=== PATIENT | male | born 1960 | race Caucasian/White ===

== ENCOUNTER 2016-07-15 12:51 | Emergency (ER) | payer MEDICAID ==
[~2016-07-15] VITALS: Ht 180.3 cm; Wt 83.9 kg
[2016-07-15 15:04] LABS: BASOPHILS % (AUTO) 0.8 % (0.0-2.0); DIFF TOTAL % 100 %; EOSINOPHILS # (AUTO) 0.2 /CMM (0.0-0.7); EOSINOPHILS % (AUTO) 3.3 % (0.0-6.0); HEMATOCRIT 42 % (39-51); HEMOGLOBIN 14.1 g/dL (13.5-17.5); LYMPHOCYTES # (AUTO) 1.9 /CMM (0.8-4.8); LYMPHOCYTES % (AUTO) 35.1 % (20.0-44.0); MEAN CORPUSCULAR HEMOGLOBIN 32 PG (26.0-33.0); MEAN CORPUSCULAR HGB CONC 34 g/dl (31.0-36.0); MEAN CORPUSCULAR VOLUME 96 fL (80-96); MONOCYTES # (AUTO) 0.5 /CMM (0.1-1.30); MONOCYTES % (AUTO) 8.7 % (2.0-12.0); NEUTROPHILS # (AUTO) 2.9 /CMM (1.8-8.9); NEUTROPHILS % (AUTO) 52.1 % (43.0-81.0); PLATELET COUNT (AUTO) 239 /CMM (150-450); RED BLOOD CELL COUNT(AUTO) 4.38 MIL/uL (4.5-6.0); WHITE BLOOD COUNT (AUTO) 5.5 K/uL (4.3-11.0)
[2016-07-15 15:13] LABS: CALCIUM, SERUM 8.2 mg/dL (8.5-10.1); CREATININE 1.2 mg/dL (0.6-1.3); POTASSIUM 3.9 mmol/L (3.5-5.1)
[2016-07-15 15:18] LABS: INR 0.99 (0.87-1.13); PROTHROMBIN TIME 10.4 SECS (9.5-12.7)
[2016-07-15 16:28] VITALS: BP 141/87
== END 2016-07-15 16:29 | disposition home or self-care (01) ==
LOC: ER 12:53
DX: H35.81 Retinal edema (principal); F20.9 Schizophrenia, unspecified
CPT/HCPCS: 36415; 71010; 80048; 85025; 85730; 93971; 99285; A4606; Z7610

== ENCOUNTER 2016-10-11 15:42 | Inpatient (IN) | payer OTHER ==
[~2016-10-11] VITALS: Ht 185.4 cm; Wt 103.5 kg
--- NOTE | 2016-10-11 15:49 | NUR ---
[id number]: S/P GLF, ABRASIONS TO HANDS. ALTERED MENTAL STATUS. AWAITING MD ORDER. GINO BAHENA
--- NOTE | 2016-10-11 16:13 | NUR ---
RODNEY #20 IV ACCESS. BLOOD SAMPLE COLLECTED SENT TO LAB
--- NOTE | 2016-10-11 16:14 | NUR ---
PT TAKEN TO CT SCAN VIA SHAWNA
[2016-10-11 16:15] LABS: BASOPHILS # (AUTO) 0.1 /CMM (0.0-0.2); BASOPHILS % (AUTO) 0.6 % (0.0-2.0); EOSINOPHILS # (AUTO) 0.1 /CMM (0.0-0.7); EOSINOPHILS % (AUTO) 1.3 % (0.0-6.0); HEMATOCRIT 44 % (39-51); HEMOGLOBIN 14.1 g/dL (13.5-17.5); LYMPHOCYTES # (AUTO) 1.8 /CMM (0.8-4.8); LYMPHOCYTES % (AUTO) 19.1 % (20.0-44.0); MEAN CORPUSCULAR HEMOGLOBIN 30 PG (26.0-33.0); MEAN CORPUSCULAR HGB CONC 32 g/dl (31.0-36.0); MEAN CORPUSCULAR VOLUME 95 fL (80-96); MONOCYTES # (AUTO) 0.7 /CMM (0.1-1.30); MONOCYTES % (AUTO) 7.8 % (2.0-12.0); NEUTROPHILS # (AUTO) 6.8 /CMM (1.8-8.9); NEUTROPHILS % (AUTO) 71.2 % (43.0-81.0); PLATELET COUNT (AUTO) 203 /CMM (150-450); RDW COEFFICIENT OF VARIATION 11.6 (11.5-15.0); RED BLOOD CELL COUNT(AUTO) 4.63 MIL/uL (4.5-6.0); WHITE BLOOD COUNT (AUTO) 9.5 K/uL (4.3-11.0)
[2016-10-11 16:28] LABS: PROTHROMBIN TIME 10.4 SECS (9.5-12.7)
[2016-10-11] MEDS ORDERED: TDAP [DIPH/PERTUSSIS/TET] 0.5 ML VIAL IM ONE ×2 (16:30→16:37)
[2016-10-11 16:31] LABS: ALANINE AMINOTRANSFERASE 21 U/L (12-78); ALBUMIN 3.8 g/dL (3.4-5.0); ALCOHOL, BLOOD < 3 mg/dL (0-0); ALKALINE PHOSPHATASE 50 U/L (46-116); ASPARTATE AMINOTRANSFERASE 25 U/L (15-37); BILIRUBIN,DIRECT 0.1 mg/dL (0.0-0.2); BILIRUBIN,TOTAL 0.6 mg/dL (0.2-1.0); CALCIUM, SERUM 8.2 mg/dL (8.5-10.1); CARBON DIOXIDE 19 mmol/L (21-32); CHLORIDE 85 mmol/L (98-107); CREATININE 1.5 mg/dL (0.6-1.3); GLUCOSE 95 mg/dL (74-106); POTASSIUM 4.1 mmol/L (3.5-5.1); TOTAL PROTEIN, SERUM 7.2 g/dL (6.4-8.2); UREA NITROGEN, BLOOD 9 mg/dL (7-18)
[2016-10-11 16:33] LABS: TROPONIN I < 0.017 ng/mL (0.00-0.056)
[2016-10-11 16:35] LABS: SODIUM SERUM 120 mmol/L (136-145)
[2016-10-11 16:44] LABS: THYROID STIMULATING HORMONE 3.962 uIU/mL (0.358-3.74)
--- NOTE | 2016-10-11 17:06 | NUR ---
URINE SAMPLE COLLECTED SENT TO LAB
--- NOTE | 2016-10-11 17:11 | NUR ---
PAGED DR NANCIE JOHNSON
--- NOTE | 2016-10-11 17:30 | NUR ---
REPORT GIVEN TO KATJA NAVARRO . TELEMETRY NIA ADMITTING. SYNCOPE HYPONATREMIA. TRANSFER VIA ACLS PROTOCOL. AWAITING CAREGIVER FOR MORE INFO AND MEDICATIONS
--- NOTE | 2016-10-11 17:37 | NUR ---
TELE 111-1
[2016-10-11 17:53] LABS: APPEARANCE,URINE Clear (CLEAR); BILIRUBIN,URINE Negative (NEGATIVE); BLOOD, URINE Moderate Ery/uL (NEGATIVE); COLOR,URINE Yellow (YELLOW); KETONES,URINE Negative (NEGATIVE); LEUKOCYTE ESTERASE ,URINE Negative (NEGATIVE); NITRITE, URINE Negative (NEGATIVE); PROTEIN,URINE Negative (NEGATIVE); UGLUCOSE Negative (NEGATIVE); UROBILINOGEN,URINE 0.2 EU/dL (0.2)
--- NOTE | 2016-10-11 17:58 | NUR ---
RN INITIAL NOTES RECEIVED PT FROM ER VIA SHAWNA. NO RESPIRATORY DISTRESS NOTED. NO SOB NOTED. DENIES ANY PAIN. PLACED COMFORTABLY TO BED. ORIENTED TO ROOM AND I=USE OF CALL LIGHT. PT A/OX1-2 WITH PERIODS OF CONFUSION. BODY ASSESSMENT DONE AND PICTURE TAKEN AND PLACED IN THE CHART. IV LINE IN PLACE. DR. CANADA AWARE OF ADMISSION, AWAITING FOR ORDERS. AND CAREGIVER AT BEDSIDE NOTIFIED.
[2016-10-11 18:01] VITALS: BP 176/95
[2016-10-11] MEDS ORDERED: ACETAMINOPHEN ES 500 MG TABLET PO PRN (18:30)
[2016-10-11 18:31] LABS: BACTERIA,URINE Rare /HPF (None Seen); SQUAMOUS EPITHELIAL CELL,UR Few /HPF (None Seen); URINE AMORPHOUS URATE Few /HPF (None Seen); WBC,URINE 0-2 /HPF (0-3)
--- NOTE | 2016-10-11 19:20 | NUR ---
RN INITIAL NOTES RECEIVED PATIENT IN BED, AWAKE AND ALERT TO NAME. PATIENT IS OBSERVED TO BE CONFUSED, AGITATED, KEEPS GETTING OUT OF BED. PATIENT'S CAREGIVER AT BEDSIDE, ABLE TO KEEP PATIENT'S BEHAVIOR AT MINIMUM AT THIS TIME, PROVIDING REASSURANCE TO THE PATIENT. PER CAREGIVER, PATIENT HAS BECOME MORE AND MORE CONFUSED, DISORIENTED FOR THE PAST COUPLE DAYS. ATTEMPTED TO REORIENT PATIENT NEEDED. SAFETY AND COMFORT ENSURED AT ALL TIMES. BED ALARM IN PLACE. BED IN LOW AND LOCKED POSITION. CALL LIGHT IN REACH. WILL MONITOR CLOSELY.
[2016-10-11 20:00] VITALS: BP 143/100
[2016-10-11] MEDS ORDERED: OLANZAPINE 10 MG VIAL IM ONE (20:30)
--- NOTE | 2016-10-11 20:30 | NUR ---
RN NOTES SPOKE WITH DR. CANADA AND UPDATED MD OF THE PATIENT'S CURRENT BEHAVIOR AND CONDITION. CON'T HOME MEDS ORDERED, ABLE TO OBTAIN ORDER FOR X1 ZYPREXA FOR AGITATION. ORDER NOTED AND CARRIED OUT. COORDINATED WITH PHARMACIST ACCORDINGLY. ALSO OBTAINED ORDER FOR 1:1 SITTER AND/OR RESTRAINTS TO BE PLACED. WILL MONITOR PATIENT CLOSELY.
--- NOTE | 2016-10-11 21:37 | NUR ---
RN NOTES PATIENT STILL AWAKE AND AGITATED, TALKING TO SELF. ATTEMPTS TO GET OUT OF BED. CONSTANT REORIENTATION AND REASSURANCE PROVIDED NEEDED, WITH MINIMAL TO NO HELP. CLOSE MONITORING BY STAFF AT ALL TIMES. BED ALARM IN PLACE. WILL CONTINUE TO MONITOR.
[2016-10-11] MEDS ORDERED: OLANZAPINE 10 MG TABLET PO SCH (22:00)
[2016-10-11] MEDS: SIMVASTATIN 20 MG TABLET PO SCH (22:22)
[2016-10-11] MEDS: LORAZEPAM INJ 2 MG/ML VIAL IV PRN (22:22)
[2016-10-11] MEDS: TRAZODONE 50 MG TABLET PO SCH (22:23)
[2016-10-12] VITALS (7 sets, daily range): BP systolic 107–195; BP diastolic 72–126
--- NOTE | 2016-10-12 03:45 | NUR ---
RN NOTES PATIENT STILL AWAKE, UNABLE TO SLEEP. TALKING TO SELF. CONSTANTLY REORIENTED AND REASSURED NEEDED, MINIMAL HELP. ON CLOSE MONITORING. BED ALARM IN PLACE.
[2016-10-12] MEDS: LORAZEPAM INJ 2 MG/ML VIAL IV PRN ×2 (04:30→10:57)
--- NOTE | 2016-10-12 06:49 | NUR ---
RN CLOSING NOTES PATIENT UNABLE TO SLEEP OVERNIGHT. PATIENT IS CONFUSED, DISORIENTED. PROVIDED WITH CONSTANT REORIENTATION AND REDIRECTION. ASSISTED WITH ADLS NEEDED. B SOFT WRIST RESTRAINTS IN PLACE AT ALL TIMES, CIRCULATION AND SKIN INTEGRITY ENSURED AT ALL TIMES. PATIENT ON CLOSE MONITORING, SAFETY AND COMFORT ENSURED AT ALL TIMES. FALL PRECAUTIONS OBSERVED. NEEDS ANTICIPATED AND MET. BED IN LOW AND LOCKED POSITION. BED ALARM IN PLACE. WILL ENDORSE ACCORDINGLY FOR CONTINUITY OF CARE.
[2016-10-12 07:05] LABS: BASOPHILS % (AUTO) 0.3 % (0.0-2.0); EOSINOPHILS % (AUTO) 0.3 % (0.0-6.0); HEMATOCRIT 48 % (39-51); HEMOGLOBIN 16.9 g/dL (13.5-17.5); LYMPHOCYTES # (AUTO) 1.3 /CMM (0.8-4.8); LYMPHOCYTES % (AUTO) 10.6 % (20.0-44.0); MEAN CORPUSCULAR HEMOGLOBIN 33 PG (26.0-33.0); MEAN CORPUSCULAR HGB CONC 35 g/dl (31.0-36.0); MEAN CORPUSCULAR VOLUME 95 fL (80-96); MONOCYTES # (AUTO) 0.9 /CMM (0.1-1.30); MONOCYTES % (AUTO) 7.3 % (2.0-12.0); NEUTROPHILS % (AUTO) 81.5 % (43.0-81.0); PLATELET COUNT (AUTO) 188 /CMM (150-450); RDW COEFFICIENT OF VARIATION 12.2 (11.5-15.0); RED BLOOD CELL COUNT(AUTO) 5.09 MIL/uL (4.5-6.0); WHITE BLOOD COUNT (AUTO) 12.2 K/uL (4.3-11.0)
--- NOTE | 2016-10-12 07:15 | NUR ---
RN INITIAL NOTE PT RECEIVED IN BED, AWAKE, ALERT, CONFUSED. DENIES PAIN AT THIS TIME. RESPIRATIONS ARE EVEN AND UNLABORED. NO S/S OF RESPIRATORY DISTRESS OR SOB. SATING WELL ON ROOM AIR. SINUS TACHYCARDIA ON TELE MONITOR. SKIN IS WARM AND DRY TO TOUCH. IV SITE FLUSHED, PATENT. DRESSING C/D/I. SAFETY PRECAUTIONS IN PLACE. BED IN LOCKED, LOW POSITIONS WITH TWO SIDE RAILS UP. CALL LIGHT AND BELONGINGS WITHIN EASY REACH. SITTER AT BEDSIDE. WILL CONTINUE TO MONITOR.
[2016-10-12 07:41] LABS: ALBUMIN 4.7 g/dL (3.4-5.0); BILIRUBIN,TOTAL 0.9 mg/dL (0.2-1.0); CALCIUM, SERUM 9.3 mg/dL (8.5-10.1); CREATININE 1.1 mg/dL (0.6-1.3); POTASSIUM 3.8 mmol/L (3.5-5.1); TOTAL PROTEIN, SERUM 8.9 g/dL (6.4-8.2)
[2016-10-12] MEDS: ALLOPURINOL 100 MG TABLET PO SCH (08:34)
[2016-10-12] MEDS: DIVALPROEX SODIUM 500 MG TABLET.DR PO SCH ×2 (08:34→16:16)
[2016-10-12] MEDS: MELOXICAM 7.5 MG TABLET PO SCH (08:34)
[2016-10-12] MEDS: ESCITALOPRAM OXALATE (10 MG) 10 MG TABLET PO SCH (08:34)
[2016-10-12] MEDS: clonazePAM 0.5 MG TABLET PO PRN ×2 (08:34→15:57)
[2016-10-12] MEDS: PANTOPRAZOLE 40 MG TABLET.DR PO SCH (08:34)
[2016-10-12] MEDS: CARVEDILOL 6.25 MG TABLET PO SCH (08:36)
[2016-10-12] MEDS ORDERED: MISCELLANEOUS MED 1 EA EA PO ONE (09:00)
--- NOTE | 2016-10-12 18:48 | NUR ---
RN CLOSING NOTE ALL MD ORDERS CARRIED OUT. PATIENT KEPT CLEAN AND DRY. SAFETY PRECAUTIONS IN PLACE AT ALL TIMES. REPORT WILL BE GIVEN TO PM RN FOR AGNES.
[2016-10-12] MEDS: SIMVASTATIN 20 MG TABLET PO SCH (21:40)
[2016-10-12] MEDS: OLANZAPINE 10 MG TABLET PO SCH ×2 (21:40→22:42)
[2016-10-12] MEDS: TRAZODONE 50 MG TABLET PO SCH (21:40)
[2016-10-13] VITALS: BP 106/69
[2016-10-13] MEDS: LORAZEPAM INJ 2 MG/ML VIAL IV PRN (00:15)
[2016-10-13 04:00] VITALS: BP 114/75
--- NOTE | 2016-10-13 07:20 | NUR ---
RN INITIAL NOTES: Rec'd pt asleep on bed, not in any distress. Pt on room air, no SOB noted. On telemonitor, SR. Has soft bilateral wrist restraints on. Pt has R hand G20, SL, flushed, patent & intact w/ no signs of infection/ infiltration noted. Has 1:1 sitter MEDICAL SERVICES MANAGER at bedside. Needs attended. Provided calm environment. Call light placed w/in reach. Bed kept low & in locked position. Will continue to monitor.
--- NOTE | 2016-10-13 07:36 | NUR ---
MECHANIC/WELDER CLOSING NOTES NO SIGNIFICANT CHANGES OVERNIGHT. PATIENT IS CONFUSED. ON BILATERAL SOFT WRIST RESTRAINTS CHECKED FOR SKIN BREAKDOWN, CIRCULATION AND SKIN INTEGRITY Q2H AND PRN. ALL SAFETY MEASURES MET, COMFORT PROVIDED. ALL NEEDS MET, ALL MEDS GIVEN AND TOLERATED IT WELL. BED IN LOW AND LOCKED POSITION, ENDORSED TO AM NURSE FOR CONTINUATION OF CARE
[2016-10-13 08:00] VITALS: BP 130/88
[2016-10-13] MEDS: CARVEDILOL 6.25 MG TABLET PO SCH (08:59)
[2016-10-13] MEDS: ALLOPURINOL 100 MG TABLET PO SCH (08:59)
[2016-10-13] MEDS: DIVALPROEX SODIUM 500 MG TABLET.DR PO SCH ×2 (08:59→17:22)
[2016-10-13] MEDS: MELOXICAM 7.5 MG TABLET PO SCH (08:59)
[2016-10-13] MEDS: PANTOPRAZOLE 40 MG TABLET.DR PO SCH (08:59)
[2016-10-13] MEDS: ESCITALOPRAM OXALATE (10 MG) 10 MG TABLET PO SCH (08:59)
--- NOTE | 2016-10-13 09:00 | NUR ---
RN NOTES: Pt seen & examined by Dr. Pemberton w/ orders & carried out. As per MD, pt is medically cleared but needs to be seen first by Psych prior to DC.
[2016-10-13 10:33] LABS: CALCIUM, SERUM 8.8 mg/dL (8.5-10.1); CREATININE 1.2 mg/dL (0.6-1.3); POTASSIUM 4.5 mmol/L (3.5-5.1)
[2016-10-13 12:00] VITALS: BP 118/88
--- NOTE | 2016-10-13 12:56 | NUR ---
RN NOTES: Pt seen & examined by Dr. Corley w/ orders & carried out. Addendum: 10/13/16 at 1320 by YASMEEN LORENZO RN Addendum: As per Dr. Corley, pt needs to evaluated first by crisis team before DC. If pt not safe to be DC, pt needs CM consult.
--- NOTE | 2016-10-13 13:18 | NUR ---
RN NOTES: Left VM to Annie No for pt's crisis team eval. Awaiting CB.
--- NOTE | 2016-10-13 15:10 | NUR ---
SW went to meet with the patient per the request of Hvac/R Service Technician Annie No. However, patient was sleeping. SW attempted several times to wake him up however he would open his eyes and shortly close them and begin snoring once again. Per patient's sitter, he was not able to sleep last night and was constantly trying to get out of the bed earlier. LISETTE also spoke with the patient's nurse Emily and informed her that she attempted to speak to him but patient fell back asleep. She informed her that patient is Farsi speaking and SW stated that she will notify director Annie No. Per Annie, crisis team clinician will come to evaluate the patient.
--- NOTE | 2016-10-13 15:11 | NUR ---
RN NOTES: Rec'd call from Ugo (Intake), Casi from crisis team will see pt.
[2016-10-13 16:00] VITALS: BP 112/78
--- NOTE | 2016-10-13 16:16 | NUR ---
LISETTE received a call from tank shop supervisor Annie No informing LISETTE that per Dr. Vernon pt. will not be evaluated by crisis team. LISETTE made an attempt to contact pt's Davon , however there was no anwer and no voicemail setup. LISETTE also contacted family member Servando Gusman and left him a voicemail message requesting a call back. Addendum: 10/13/16 at 1618 by OWEN KNOX BRENTON Lynsey Pan was informed regarding crisis evaluation being cancelled by Dr. Uribe.
--- NOTE | 2016-10-13 18:50 | NUR ---
RN CLOSING NOTES: No acute changes noted w/in shift. Pt was off restraints whole shift, no aggressive behavior noted. R hand G20, kept patent & intact w/ no signs of infection/ infiltration noted. Has 1:1 sitter POTATO SPOTTER at bedside. Kept well rested. Needs attended. Call light placed w/in reach. Bed kept low & in locked pos. Will endorse to PM RN for AGNES.
--- NOTE | 2016-10-13 19:25 | NUR ---
MS/RN OPENING NOTES PT AWAKE, LAYING COMFORTABLY IN BED. SITTER AT BEDSIDE, ABLE TO MAKE NEEDS KNOWN. ON ROOM AIR, NO SOB OR DISTRESS NOTED. BREATHING EVEN AND UNLABORED. NO RESTRAINTS ON AT THIS TIME AND PT APPEARS CALM AND COOPERATIVE. IV TO RIGHT HAND PATENT AND INTACT. BED IN LOW/LOCKED POSITION WITH CALL LIGHT IN REACH. BED RAILS XUP2 AND ALARM ON. WILL CONTINUE TO MONITOR
[2016-10-13 20:00] VITALS: BP 117/76
--- NOTE | 2016-10-13 20:22 | NUR ---
MS/RN NOTES WOMAN FROM [facility] CALLED TO SEE IF FAMILY WAS CONTACTED FOR EVALUATION OF THE PT. INFORMED HER THAT FOOD TASTER CALLED AND LEFT A VOICEMAIL FOR THE FAMILY TO CALL HER BACK. SHE WILL TRY AND REACH THE FAMILY AGAIN THIS EVENING AND LET ME KNOW IF SHE WAS ABLE TO REACH THEM
[2016-10-13] MEDS: OLANZAPINE 10 MG TABLET PO SCH (22:00)
[2016-10-13] MEDS: TRAZODONE 50 MG TABLET PO SCH (22:00)
[2016-10-13] MEDS: SIMVASTATIN 20 MG TABLET PO SCH (22:00)
--- NOTE | 2016-10-13 22:04 | NUR ---
MS/RN NOTES PT ASLEEP, DOES NOT WANT TO TAKE PM MEDICATIONS. EDUCATED ABOUT RISKS AND BENEFITS X3 AND PT STILL REFUSED, JUST WANTS TO SLEEP AT THIS TIME. WILL CONTINUE TO MONITOR
[2016-10-14 04:00] VITALS: BP 117/83
--- NOTE | 2016-10-14 06:56 | NUR ---
MS/RN CLOSING NOTES PT ASLEEP, SITTER AT BEDSIDE. ON ROOM AIR, NO SOB OR DISTRESS NOTED. NO S/S OF PAIN. PT WANTING TO SLEEP THROUGHOUT THE NIGHT. IV TO RIGHT HAND PATENT AND INTACT. BED IN LOW/LCOKED POSITION, CALL LIGHT IN REACH. BED ALARM ON AND SIDE RAILS UPX2. ALL NEEDS MET AND ATTENDED. MADE PT COMFORTABLE THROUGHOUT SHIFT. WILL ENDORSE TO DAY SHIFT RN AGNES.
[2016-10-14] MEDS: ESCITALOPRAM OXALATE (10 MG) 10 MG TABLET PO SCH (08:59)
[2016-10-14] MEDS: DIVALPROEX SODIUM 500 MG TABLET.DR PO SCH ×2 (08:59→16:42)
[2016-10-14] MEDS: PANTOPRAZOLE 40 MG TABLET.DR PO SCH (08:59)
[2016-10-14] MEDS: MELOXICAM 7.5 MG TABLET PO SCH (08:59)
[2016-10-14] MEDS: ALLOPURINOL 100 MG TABLET PO SCH (09:00)
[2016-10-14] MEDS: CARVEDILOL 6.25 MG TABLET PO SCH (09:00)
--- NOTE | 2016-10-14 11:08 | NUR ---
SW received a call back from [facility] office services assistant Servando Gusman who informed SW that pt. and his both are developmentally disabled and are receiving [facility] services at home at this time. Pt. has no family and his next of kin is his [id number]-sij Dr. Jonhson . LISETTE gave transplant case manager Alexandre contact information to Dr. Johnson.
--- NOTE | 2016-10-14 11:30 | NUR ---
LISETTE called [facility] administrative services coordinator Inocencio Gusman and informed him that pt. cannot be placed on hold due to having no criteria. Pt. is developmentally disabled and needs to be in a correction setting that can provide / supervision. Inocencio informed SW he will look into finding a correction for pt. and will speak to Dr. Johnson, pt's [id number]). LISETTE followed up with immigration case manager regarding the conversation LISETTE had with Inocencio. Addendum: 10/14/16 at 1557 by OWEN KNOX Correction: [facility] administrative services coordinator is Mariusz Cheema , Inocencio is the caregiver for pt. from [facility].
[2016-10-14 12:27] VITALS: BP 132/85
--- NOTE | 2016-10-14 15:57 | NUR ---
LISETTE spoke with Luz from [facility] supported living agency who informed SW that pt's caregiver Inocencio will be coming to the hospital to olive picker pt. at 4PM. LISETTE informed pt. RN and BRENTON ADÁN Rosen regarding discharge plan. LISETTE informed Dr. Corley regarding discharge plan.
--- NOTE | 2016-10-14 19:10 | NUR ---
pt d/c home with son.all d/c instructions and medication list given to family.all m.d orders noted
== END 2016-10-14 19:05 | disposition home or self-care (01) | DRG 460 ==
LOC: ER 15:46 → TELE1 17:38 → MEDSG1 10-13 13:24
PROVIDERS: ADMIT Internal Medicine; ATTEND Internal Medicine
DX: N17.9 Acute kidney failure, unspecified (principal); G93.40 Encephalopathy, unspecified; E87.1 Hypo-osmolality and hyponatremia; I10 Essential (primary) hypertension; F20.9 Schizophrenia, unspecified; J45.909 Unspecified asthma, uncomplicated; E86.0 Dehydration; E78.5 Hyperlipidemia, unspecified; F41.9 Anxiety disorder, unspecified; G89.29 Other chronic pain; F29 Unspecified psychosis not due to a substance or known physiological condition; W18.30XA Fall on same level, unspecified, initial encounter; Y93.9 Activity, unspecified; Y92.9 Unspecified place or not applicable; Y99.9 Unspecified external cause status; E03.9 Hypothyroidism, unspecified; S60.512A Abrasion of left hand, initial encounter; S60.511A Abrasion of right hand, initial encounter
CPT/HCPCS: 36415; 70450-TC; 71010-TC; 72125-TC; 80048-TC; 80053-TC; 80076-TC; 80305; 81000-TC; 82962-TC; 84443-TC; 84484-TC; 85025-TC; 85730-TC; 90715; 93307-TC; 93880-TC; A4606; G0480; J2060; J3490; Z7610

== ENCOUNTER 2019-03-27 22:22 | Emergency (ER) | payer OTHER ==
[~2019-03-27] VITALS: Ht 175.3 cm; Wt 98.0 kg
--- NOTE | 2019-03-27 22:42 | NUR ---
KAVITHA FROM HOME TO ER BED 13. AAOX3. NO RESP DISTRESS NOTED, BREATHING EVEN AND UNLABORED. FARSI SPEAKING. BROUGHT IN FOR UNUSSUAL BEHAVIOR. PER EMS REPORT, CAREGIVER CALLED 911 BECAUSE OF UNUSUAL BEHAVIOR, ACCORDING TO EMS REPORT, PT HAS NOT EATEN FOR THE PAST 12 HRS. PER EMS, PT'S CAREGIVER DOES NOT SPEAK FARSI. AWAITING MD FOR EVAL.
[2019-03-27 22:50] LABS: BASOPHILS # (AUTO) 0.1 /CMM (0.0-0.2); BASOPHILS % (AUTO) 0.7 % (0.0-2.0); EOSINOPHILS % (AUTO) 1.7 % (0.0-6.0); HEMATOCRIT 34 % (39-51); HEMOGLOBIN 11.2 g/dL (13.5-17.5); LYMPHOCYTES # (AUTO) 3.3 /CMM (0.8-4.8); LYMPHOCYTES % (AUTO) 34.6 % (20.0-44.0); MEAN CORPUSCULAR HGB CONC 33 g/dl (31.0-36.0); MEAN CORPUSCULAR VOLUME 98 fL (80-96); MONOCYTES # (AUTO) 0.8 /CMM (0.1-1.30); NEUTROPHILS # (AUTO) 5.3 /CMM (1.8-8.9); PLATELET COUNT (AUTO) 317 /CMM (150-450); RED BLOOD CELL COUNT(AUTO) 3.46 MIL/uL (4.5-6.0); WHITE BLOOD COUNT (AUTO) 9.6 K/uL (4.3-11.0)
[2019-03-27 23:07] LABS: ALANINE AMINOTRANSFERASE 35 U/L (12-78); ALBUMIN 4.4 g/dL (3.4-5.0); ALCOHOL, BLOOD < 3 mg/dL (0-0); ALKALINE PHOSPHATASE 38 U/L (46-116); ASPARTATE AMINOTRANSFERASE 27 U/L (15-37); BILIRUBIN,DIRECT 0.2 mg/dL (0.0-0.2); BILIRUBIN,TOTAL 0.5 mg/dL (0.2-1.0); CALCIUM, SERUM 10.5 mg/dL (8.5-10.1); CARBON DIOXIDE 23 mmol/L (21-32); CHLORIDE 99 mmol/L (98-107); CREATININE 5.4 mg/dL (0.6-1.3); GLUCOSE 138 mg/dL (74-106); POTASSIUM 4.7 mmol/L (3.5-5.1); SALICYLATE 1.7 mg/dL (2.8-20.0); SODIUM SERUM 138 mmol/L (136-145); TOTAL PROTEIN, SERUM 8.5 g/dL (6.4-8.2); UREA NITROGEN, BLOOD 61 mg/dL (7-18)
[2019-03-27 23:08] LABS: ACETAMINOPHEN < 2 ug/ml (10-30)
--- NOTE | 2019-03-27 23:33 | NUR ---
PT SPEAKS FEW ESTONIAN. RAMON KEARNEY FOR TRANSLATION AT BEDSIDE. PT STATES THAT HE WAS WATCHING TV AND CANT WALK AND FEELING WEAK. PT IS NOTED TACHYCARDIC AT 130S. AWARE
[2019-03-28] MEDS ORDERED: IV NS 0.9% 1,000 ML BAG IV ONE
--- NOTE | 2019-03-28 01:22 | NUR ---
PT IS ACCEPPTED AT [facility]
[2019-03-28 01:56] LABS: APPEARANCE,URINE Clear (CLEAR); BILIRUBIN,URINE Negative (NEGATIVE); BLOOD, URINE Negative Ery/uL (NEGATIVE); COLOR,URINE Yellow (YELLOW); KETONES,URINE Negative (NEGATIVE); LEUKOCYTE ESTERASE ,URINE Negative (NEGATIVE); NITRITE, URINE Negative (NEGATIVE); PROTEIN,URINE Negative (NEGATIVE); UGLUCOSE Negative (NEGATIVE); UROBILINOGEN,URINE 0.2 EU/dL (0.2)
--- NOTE | 2019-03-28 02:42 | NUR ---
pt is accepted at [facility] RM: [id number] DR: Andres monteiro to get report: Marcela
--- NOTE | 2019-03-28 02:56 | NUR ---
report given to theater set production designer from YEHUDA and Little at [facility]
[2019-03-28 03:00] VITALS: BP 105/43
--- NOTE | 2019-03-28 03:14 | NUR ---
pt was transferred to [facility] in stable condition via gurney. all belonging s picked up by the delicatessen clerk
== END 2019-03-28 03:19 | disposition short-term general hospital (02) ==
LOC: ER 22:23
DX: N17.9 Acute kidney failure, unspecified (principal); I10 Essential (primary) hypertension; F32.9 Major depressive disorder, single episode, unspecified; F41.9 Anxiety disorder, unspecified; F20.9 Schizophrenia, unspecified; E78.5 Hyperlipidemia, unspecified; G89.29 Other chronic pain; R40.4 Transient alteration of awareness
CPT/HCPCS: 36415; 70450; 80048; 80076; 80305; 80307; 80329; 81001; 85025; 87081; 99285; G0480; J7030 ×2; 81000-TC

== ENCOUNTER 2019-04-04 20:15 | Emergency (ER) | payer OTHER ==
[~2019-04-04] VITALS: Ht 175.3 cm; Wt 98.0 kg
[2019-04-04] MEDS ORDERED: OLANZAPINE 5 MG TABLET ONE (20:48)
[2019-04-04 20:51] LABS: BASOPHILS % (AUTO) 0.4 % (0.0-2.0); EOSINOPHILS % (AUTO) 2.1 % (0.0-6.0); HEMATOCRIT 36 % (39-51); HEMOGLOBIN 11.7 g/dL (13.5-17.5); LYMPHOCYTES # (AUTO) 2.7 /CMM (0.8-4.8); LYMPHOCYTES % (AUTO) 29.3 % (20.0-44.0); MEAN CORPUSCULAR HGB CONC 32 g/dl (31.0-36.0); MEAN CORPUSCULAR VOLUME 98 fL (80-96); MONOCYTES # (AUTO) 0.7 /CMM (0.1-1.30); MONOCYTES % (AUTO) 7.3 % (2.0-12.0); NEUTROPHILS # (AUTO) 5.5 /CMM (1.8-8.9); NEUTROPHILS % (AUTO) 60.9 % (43.0-81.0); PLATELET COUNT (AUTO) 366 /CMM (150-450); RED BLOOD CELL COUNT(AUTO) 3.67 MIL/uL (4.5-6.0); WHITE BLOOD COUNT (AUTO) 9.1 K/uL (4.3-11.0)
--- NOTE | 2019-04-04 20:53 | NUR ---
[id number] FROM HOME FOR AGGRESSIVE BEHAVIOR. PER RA, PT WAS THREATENING TO HURT CAREGIVER. PT HYPERVERBAL, COOPERATIVE, NAD NOTED @ THIS TIME. PT SEEN & EVAL'D BY CED TERESA. JOHN @ BS & WILL CONT TO MONITOR.
[2019-04-04] MEDS ORDERED: OLANZAPINE 5 MG TABLET PO ONE (21:00)
[2019-04-04 21:16] LABS: CALCIUM, SERUM 10.1 mg/dL (8.5-10.1); CARBON DIOXIDE 19 mmol/L (21-32); CHLORIDE 98 mmol/L (98-107); CREATININE 4.6 mg/dL (0.6-1.3); GLUCOSE 131 mg/dL (74-106); POTASSIUM 4.9 mmol/L (3.5-5.1); SODIUM SERUM 135 mmol/L (136-145); UREA NITROGEN, BLOOD 54 mg/dL (7-18)
[2019-04-04 21:30] LABS: ALANINE AMINOTRANSFERASE 33 U/L (12-78); ALBUMIN 4.5 g/dL (3.4-5.0); ALCOHOL, BLOOD < 3 mg/dL (0-0); ALKALINE PHOSPHATASE 40 U/L (46-116); ASPARTATE AMINOTRANSFERASE 29 U/L (15-37); BILIRUBIN,DIRECT 0.1 mg/dL (0.0-0.2); BILIRUBIN,TOTAL 0.4 mg/dL (0.2-1.0); TOTAL PROTEIN, SERUM 8.7 g/dL (6.4-8.2)
[2019-04-04 21:32] LABS: ACETAMINOPHEN 0 ug/ml (10-30); SALICYLATE 1.9 mg/dL (2.8-20.0)
[2019-04-04] MEDS ORDERED: HALOPERIDOL LACTATE INJ 5 MG/ML VIAL IM ONE (22:30)
[2019-04-04] MEDS ORDERED: LORAZEPAM INJ 2 MG/ML VIAL IM ONE (22:30)
--- NOTE | 2019-04-04 22:37 | NUR ---
EVIN LONG (CAREGIVER) PLEASE CALL FOR UPDATES, DISCHARGE/ADMIT DECISION. [phone]
[2019-04-04] MEDS ORDERED: LORAZEPAM INJ 2 MG/ML VIAL ONE (22:45)
[2019-04-04] MEDS ORDERED: HALOPERIDOL LACTATE INJ 5 MG/ML VIAL ONE (22:45)
--- NOTE | 2019-04-04 22:50 | NUR ---
PT GETTING RESTLESS, SCREAMING. MEDICATED ORDERED, PT ANTONIETA WELL. WILL CONT TO MONITOR. JOHN @ LEONARDA.
[2019-04-04 23:26] LABS: APPEARANCE,URINE Clear (CLEAR); BILIRUBIN,URINE Negative (NEGATIVE); BLOOD, URINE Negative Ery/uL (NEGATIVE); COLOR,URINE Yellow (YELLOW); KETONES,URINE Negative (NEGATIVE); LEUKOCYTE ESTERASE ,URINE Negative (NEGATIVE); NITRITE, URINE Negative (NEGATIVE); PROTEIN,URINE Negative (NEGATIVE); UGLUCOSE Negative (NEGATIVE); UROBILINOGEN,URINE 0.2 EU/dL (0.2)
--- NOTE | 2019-04-05 04:30 | NUR ---
PT SLEEPING IN [place]. NO SIGNS OF DISTRESS NOTED. PT VITAL SIGNS STABLE. WILL CONT TO MONITOR PT.
[2019-04-05] MEDS ORDERED: LORAZEPAM 1 MG TABLET PO ONE (07:00)
[2019-04-05] MEDS ORDERED: LORAZEPAM 1 MG TABLET ONE (07:14)
[2019-04-05 07:26] VITALS: BP 134/79
--- NOTE | 2019-04-05 07:26 | NUR ---
PT CAREGIVER AT BEDSIDE TO TAKE PATIENT HOME.
== END 2019-04-05 07:27 | disposition home or self-care (01) ==
LOC: ER 20:16
DX: F23 Brief psychotic disorder (principal); I12.9 Hypertensive chronic kidney disease with stage 1 through stage 4 chronic kidney disease, or unspecified chronic kidney disease; N18.9 Chronic kidney disease, unspecified; D64.9 Anemia, unspecified; F71 Moderate intellectual disabilities; F32.9 Major depressive disorder, single episode, unspecified; F41.9 Anxiety disorder, unspecified; F84.0 Autistic disorder; E78.5 Hyperlipidemia, unspecified; M54.5 Low back pain; G89.29 Other chronic pain; R00.0 Tachycardia, unspecified
CPT/HCPCS: 36415; 80048; 80076; 80305; 80307; 80329; 81001; 85025; 93005; 96372 ×2; 99284; G0480; J1630; J2060; 81000-TC

== ENCOUNTER 2019-10-23 13:29 | Inpatient (IN) | payer OTHER ==
[~2019-10-23] VITALS: Ht 182.9 cm; Wt 96.6 kg
[2019-10-23] MEDS ORDERED: ASPIRIN 81 MG TAB.CHEW PO ONE (14:00)
[2019-10-23] MEDS ORDERED: ASPIRIN 81 MG TAB.CHEW ONE (14:07)
--- NOTE | 2019-10-23 14:22 | NUR ---
BIBS TO ER BED 12. AAOX3. CAREGIVER AT THE BEDSIDE. AMBULATORY. SENT BY URGENT CARE FOR ABNORMAL EKG, CHEST PAIN SINCE THIS 0745 RADIATING TO L ARM SHARP 10/16. MID BACK PAIN SINCE LAST NIGHT. PT PLACED ON MONITOR. EKG DONE. IV LINE OBTAINED ON L WRIST 20G, BLOOD DRAWN AND SENT TO LAB.
[2019-10-23 14:27] LABS: BASOPHILS # (AUTO) 0.1 /CMM (0.0-0.2); BASOPHILS % (AUTO) 0.9 % (0.0-2.0); EOSINOPHILS % (AUTO) 1.6 % (0.0-6.0); HEMATOCRIT 40 % (39-51); HEMOGLOBIN 13.3 g/dL (13.5-17.5); LYMPHOCYTES # (AUTO) 2.5 /CMM (0.8-4.8); LYMPHOCYTES % (AUTO) 33.8 % (20.0-44.0); MEAN CORPUSCULAR HGB CONC 33 g/dl (31.0-36.0); MEAN CORPUSCULAR VOLUME 93 fL (80-96); MONOCYTES # (AUTO) 0.8 /CMM (0.1-1.30); MONOCYTES % (AUTO) 10.4 % (2.0-12.0); NEUTROPHILS # (AUTO) 3.9 /CMM (1.8-8.9); NEUTROPHILS % (AUTO) 53.3 % (43.0-81.0); PLATELET COUNT (AUTO) 232 /CMM (150-450); RED BLOOD CELL COUNT(AUTO) 4.27 MIL/uL (4.5-6.0); WHITE BLOOD COUNT (AUTO) 7.3 K/uL (4.3-11.0)
[2019-10-23 14:46] LABS: CALCIUM, SERUM 10.2 mg/dL (8.5-10.1); CARBON DIOXIDE 29 mmol/L (21-32); CHLORIDE 99 mmol/L (98-107); GLUCOSE 110 mg/dL (74-106); POTASSIUM 4.4 mmol/L (3.5-5.1); SODIUM SERUM 136 mmol/L (136-145); UREA NITROGEN, BLOOD 43 mg/dL (7-18)
[2019-10-23 14:50] LABS: ALANINE AMINOTRANSFERASE 27 U/L (12-78); ALBUMIN 4.1 g/dL (3.4-5.0); ALKALINE PHOSPHATASE 78 U/L (46-116); ASPARTATE AMINOTRANSFERASE 22 U/L (15-37); BILIRUBIN,DIRECT 0.1 mg/dL (0.0-0.2); BILIRUBIN,TOTAL 0.5 mg/dL (0.2-1.0); TOTAL PROTEIN, SERUM 8.1 g/dL (6.4-8.2)
[2019-10-23 15:24] LABS: THYROID STIMULATING HORMONE 3.532 uIU/mL (0.358-3.74)
[2019-10-23 15:39] LABS: VALPROIC ACID 41 ug/mL (50-100)
[2019-10-23 15:42] LABS: ALCOHOL, BLOOD < 3 mg/dL (0-0)
[2019-10-23 16:52] LABS: APPEARANCE,URINE Clear (CLEAR); BACTERIA,URINE Few /HPF (None Seen); BILIRUBIN,URINE Negative (NEGATIVE); BLOOD, URINE Trace-intact Ery/uL (NEGATIVE); COLOR,URINE Yellow (YELLOW); KETONES,URINE Negative (NEGATIVE); LEUKOCYTE ESTERASE ,URINE Trace (NEGATIVE); NITRITE, URINE Negative (NEGATIVE); PH,URINE 5.5 (5.0-8.0); PROTEIN,URINE Negative (NEGATIVE); SQUAMOUS EPITHELIAL CELL,UR Few /HPF (None Seen); UGLUCOSE Negative (NEGATIVE); UROBILINOGEN,URINE 0.2 EU/dL (0.2)
--- NOTE | 2019-10-23 17:32 | NUR ---
CALLED [facility] PAGED CHRISTIANO
[2019-10-23] MEDS ORDERED: CHLO100T24 PO (17:35)
[2019-10-23] MEDS ORDERED: ATOR80TA PO (17:35)
[2019-10-23] MEDS ORDERED: FURO80TA85 PO (17:35)
[2019-10-23] MEDS ORDERED: OMEP20TA5 PO (17:35)
[2019-10-23] MEDS ORDERED: ALLO100T PO (17:35)
[2019-10-23] MEDS ORDERED: DIVA500T54 PO (17:35)
[2019-10-23] MEDS ORDERED: CARV6.252 PO (17:35)
[2019-10-23] MEDS ORDERED: METF-441 PO (17:35)
[2019-10-23] MEDS ORDERED: LOSA100T31 PO (17:35)
[2019-10-23] MEDS ORDERED: AMLO10TA4 PO (17:35)
[2019-10-23] MEDS ORDERED: TAMS-12 PO (17:35)
[2019-10-23] MEDS ORDERED: LATA2.5D7 OP (17:35)
[2019-10-23] MEDS ORDERED: QUET300T5 PO (17:35)
[2019-10-23] MEDS ORDERED: LEVO100T9 PO (17:35)
[2019-10-23] MEDS ORDERED: FENO145T PO (17:35)
[2019-10-23] MEDS ORDERED: POTA-10 PO (17:35)
--- NOTE | 2019-10-23 17:59 | NUR ---
SPOKE WITH FER, FOOD AND BEVERAGE INTERN FOR CLINICAL INFORMATION. PT IS AUTHORIZED TO STAY. TRACKING NUMBER: [id number]
--- NOTE | 2019-10-23 18:05 | NUR ---
CLINICALS FAXED TO RULING MACHINE FEEDER
--- NOTE | 2019-10-23 18:28 | NUR ---
REPORT GIVEN TO RAMON GATES FOR AGNES
[2019-10-23] MEDS ORDERED: ACETAMINOPHEN 325 MG TABLET PO PRN (18:30)
[2019-10-23] MEDS ORDERED: MAG HYDROX/AL HYDROX/SIMETH 30 ML UDC PO PRN (18:30)
[2019-10-23] MEDS ORDERED: ONDANSETRON HCL/PF 4 MG/2 ML VIAL IVP PRN (18:30)
[2019-10-23] MEDS ORDERED: MAGNESIUM HYDROXIDE 30 ML UDC PO PRN (18:30)
[2019-10-23] MEDS ORDERED: HYDROCODONE/APAP 5/325MG 1 EACH TABLET PO PRN (18:30)
--- NOTE | 2019-10-23 19:25 | NUR ---
pt transported to unit on [facility] with emt and rn at the bedside w/ acls protocol. nad noted. pt ambulated from rsomes bar to bed on his own w/o assist
--- NOTE | 2019-10-23 19:30 | NUR ---
restaurant workersponge fisherman notes Received Pt from ER. Pt arrived at the unit with a gurney and ALCS protocol. Pt is alert and orientedX1-2. Respiration is normal in room air. Pt is able to ambulate with a steady gait. Tele monitor showed sinus tachy. IV sites at R wrist# 20 is clean, intact and flush without resistance. Skin is intact. Pt's belonging was checked by ANETTE Pierson. Admission orders received. Safety precautions is maintained. Bed at low position, brakes locked, side rails up#2 and call light is within reach. Will continue to monitor.
[2019-10-23 19:40] VITALS: BP 147/103
[2019-10-23 20:00] VITALS: BP 147/103
[2019-10-23] MEDS: IV NS 0.9% 1,000 ML IV PRN (20:01)
[2019-10-23 20:05] VITALS: BP 147/103
[2019-10-23] MEDS: DIVALPROEX SODIUM 500 MG TABLET.DR PO SCH (20:12)
[2019-10-23] MEDS: LOSARTAN POTASSIUM 50 MG TABLET PO SCH (20:12)
[2019-10-23] MEDS: ATORVASTATIN 40 MG TABLET PO SCH (21:42)
[2019-10-23] MEDS: LATANOPROST EYE DROP 0.005% 2.5 ML BOTTLE EACHEYE SCH (21:42)
[2019-10-23] MEDS: QUETIAPINE FUMARATE 100 MG TABLET PO SCH (21:42)
[2019-10-23] MEDS ORDERED: ZOLPIDEM TARTRATE 5 MG TABLET PO PRN (22:00)
--- NOTE | 2019-10-23 23:15 | NUR ---
research support specialist notes Pt's going for nuclear medicine with Santos from nuclear medicine.
[2019-10-24] VITALS: BP 137/100
--- NOTE | 2019-10-24 00:15 | NUR ---
road traffic controller notes Pt is back from nuclear medicine with Santos. Pt is in the room.
[2019-10-24 00:20] VITALS: BP 137/100
--- NOTE | 2019-10-24 03:00 | NUR ---
assembler watch train notes Informed and notified MIRANDA Arias regarding lung scan NM result. No new order received from AIR BRAKE ADJUSTER. Charge nurse is aware and informed. Will continue to monitor.
[2019-10-24 04:00] VITALS: BP 141/101
--- NOTE | 2019-10-24 06:40 | NUR ---
outreach and education social worker closing notes Pt is resting in bed comfortably. Pt is alert and orientedX1-2 with episode of confusion. Respiration is normal in room air. No SOB. No S/s of distress noted. IV sites at R wrist # 20 is clean, intact and infusing well NS @ 100ml/hr. Tele monitor showed sinus tachy. Routine meds were given as ordered. Kept Pt clean, dry and comfortable. Safety precautions is maintained. Bed at low position, brakes locked, side rails upX2 and call is within reach. Will endorse to morning nurse for AGNES.
[2019-10-24 07:37] LABS: BASOPHILS % (AUTO) 0.3 % (0.0-2.0); EOSINOPHILS % (AUTO) 2.5 % (0.0-6.0); HEMATOCRIT 38 % (39-51); HEMOGLOBIN 12.5 g/dL (13.5-17.5); LYMPHOCYTES # (AUTO) 2.3 /CMM (0.8-4.8); LYMPHOCYTES % (AUTO) 39.7 % (20.0-44.0); MEAN CORPUSCULAR HGB CONC 33 g/dl (31.0-36.0); MEAN CORPUSCULAR VOLUME 93 fL (80-96); MONOCYTES # (AUTO) 0.6 /CMM (0.1-1.30); MONOCYTES % (AUTO) 9.9 % (2.0-12.0); NEUTROPHILS # (AUTO) 2.8 /CMM (1.8-8.9); NEUTROPHILS % (AUTO) 47.6 % (43.0-81.0); PLATELET COUNT (AUTO) 204 /CMM (150-450); RED BLOOD CELL COUNT(AUTO) 4.07 MIL/uL (4.5-6.0); WHITE BLOOD COUNT (AUTO) 5.9 K/uL (4.3-11.0)
--- NOTE | 2019-10-24 07:40 | NUR ---
ms rn received on bed, awake,alert,oriented x2 -3,not in any form of distress, respirations even and unlabored,no sob noted, lungs are clear,abdomen soft,positive bowel sounds,denies pain at this time, will monitor patient.
[2019-10-24 07:41] LABS: CALCIUM, SERUM 9.7 mg/dL (8.5-10.1); CREATININE 1.8 mg/dL (0.6-1.3); MAGNESIUM 2.3 mg/dL (1.8-2.4); PHOSPHORUS 4.7 mg/dL (2.5-4.9)
[2019-10-24] MEDS ORDERED: IV NS 0.9% 1,000 ML IV PRN (07:42)
[2019-10-24 08:00] VITALS: BP 158/100
[2019-10-24] MEDS ORDERED: REGADENOSON 0.4 MG/5 ML DISP.SYRIN IVP ONE (08:00)
[2019-10-24] MEDS: DIVALPROEX SODIUM 500 MG TABLET.DR PO SCH ×2 (09:00→18:06)
[2019-10-24] MEDS: chlorproMAZINE HCL 25 MG TABLET PO SCH ×2 (09:00→18:08)
[2019-10-24] MEDS ORDERED: METFORMIN 850 MG TABLET PO SCH ×2 (09:00)
[2019-10-24] MEDS ORDERED: POTASSIUM CHLORIDE 10 MEQ TABLET.SA PO SCH (09:00)
[2019-10-24] MEDS ORDERED: FUROSEMIDE 80 MG TABLET PO SCH (09:00)
--- NOTE | 2019-10-24 09:00 | NUR ---
ms rn patient on npo at this time, for stress test today, meds held at this time.
--- NOTE | 2019-10-24 11:00 | NUR ---
ms rn patient went down for stress test.
--- NOTE | 2019-10-24 13:00 | NUR ---
ms rn patient came back from the procedure, requested to take meds later at 5 pm.
--- NOTE | 2019-10-24 13:30 | NUR ---
ms monteiro lunch served,tolerated well.
[2019-10-24 16:00] VITALS: BP 157/98
--- NOTE | 2019-10-24 18:00 | NUR ---
ms rn patient on bed, all needs attended.
[2019-10-24] MEDS: AMLODIPINE BESYLATE 10 MG TABLET PO SCH (18:05)
[2019-10-24] MEDS: PANTOPRAZOLE 40 MG TABLET.DR PO SCH (18:05)
[2019-10-24] MEDS: FENOFIBRATE NANOCRYS (145 MG) 145 MG TABLET PO SCH (18:05)
[2019-10-24] MEDS: LEVOTHYROXINE SODIUM 100 MCG TABLET PO SCH (18:06)
[2019-10-24] MEDS: CARVEDILOL 6.25 MG TABLET PO SCH ×2 (18:06→20:48)
[2019-10-24 20:00] VITALS: BP 149/100
--- NOTE | 2019-10-24 20:00 | NUR ---
MS/RN OPENING NOTES RECEIVED PATIENT IN BED, AWAKE, ALERT X2, SPEAKING RWANDAN BUT CAN FOLLOW SIMPLE INSTRUCTIONS, PATIENT ABLE TO ASK AND DO SELF CARE BUT WITH ASSISTANCE, BELONGING WITHIN REACH, TALKING TO SHAYAN OBSERVED. RESPIRATIONS EVEN AND UNLABORED, BED LOCKED, CALL LIGGHTS WITHIN REACH. BED ALARM ON. RECIEVED ENDORSEMENT FROM AM RN FOR AGNES. PATIENT WANTSED TO GO HOME JESICA, WILL FOLLOW UP ANY CHANGES AND TO FOLLOW UP WITH MD.
[2019-10-24] MEDS: LOSARTAN POTASSIUM 50 MG TABLET PO SCH (20:48)
[2019-10-24] MEDS: ATORVASTATIN 40 MG TABLET PO SCH (21:05)
[2019-10-24] MEDS: QUETIAPINE FUMARATE 100 MG TABLET PO SCH (21:05)
[2019-10-24] MEDS: TAMSULOSIN 0.4 MG CAP.SR.24H PO SCH (21:05)
[2019-10-24] MEDS: LATANOPROST EYE DROP 0.005% 2.5 ML BOTTLE EACHEYE SCH (21:06)
[2019-10-24] MEDS: Z GUARD REMEDY 2 OZ OINT TP PRN (21:07)
--- NOTE | 2019-10-24 22:30 | NUR ---
ms/rn notes patient talking to self and reported unable to sleep, ambien as needed administered orally as prescribed by md, to monitor effectiveness.
[2019-10-24] MEDS: IV NS 0.9% 1,000 ML IV PRN (22:48)
--- NOTE | 2019-10-25 05:28 | NUR ---
310-1 MS/RN NOTES PATIENT ABLE TO SLEEP DURING THE NIGHT, ATTENDED TO ALL NEEDS, ON ROOM AIR RESPIRATIONS EVEN AND UNLABORED, SKIN WARM TO TOUCH, MONITORED FOR SAFETY. BED LOCKED, CALL LIGHTS WITHIN REACH. OFFERED AND PROVIDED FLUIDS/
--- NOTE | 2019-10-25 07:03 | NUR ---
MS RN OPENING NOTES RECEIVED PATIENT IN BED, AWAKE AT THIS TIME, AOX1-2, ABLE TO COOPERATE WITH CARE AND FOLLOW SIMPLE INSTRUCTIONS, NO SOB NOTED, NO S/S OF ANY ACUTE DISTRESS NOTED, NO C/O PAIN AT THIS TIME, RESPIRATIONS EVEN AND UNLABORED, IV ACCESS TO RAC G#20, INTACT AND PATENT. BED IN LOWEST LOCKED POSITION, HOB ELEVATED TO SEMI FOWLERS POSITION, CALL LIGHTS WITHIN REACH, BED ALARM ON. WILL CONTINUE TO MONITOR AND CONTINUE PLAN OF CARE
[2019-10-25 07:29] LABS: BASOPHILS # (AUTO) 0.1 /CMM (0.0-0.2); BASOPHILS % (AUTO) 1.3 % (0.0-2.0); EOSINOPHILS % (AUTO) 2.1 % (0.0-6.0); HEMATOCRIT 41 % (39-51); HEMOGLOBIN 13.2 g/dL (13.5-17.5); LYMPHOCYTES % (AUTO) 28.4 % (20.0-44.0); MEAN CORPUSCULAR HGB CONC 33 g/dl (31.0-36.0); MEAN CORPUSCULAR VOLUME 93 fL (80-96); MONOCYTES # (AUTO) 0.7 /CMM (0.1-1.30); MONOCYTES % (AUTO) 10.2 % (2.0-12.0); PLATELET COUNT (AUTO) 224 /CMM (150-450); RED BLOOD CELL COUNT(AUTO) 4.35 MIL/uL (4.5-6.0)
[2019-10-25 07:48] LABS: ALBUMIN 3.9 g/dL (3.4-5.0); BILIRUBIN,TOTAL 0.6 mg/dL (0.2-1.0); CALCIUM, SERUM 9.3 mg/dL (8.5-10.1); CREATININE 1.6 mg/dL (0.6-1.3); MAGNESIUM 2.4 mg/dL (1.8-2.4); PHOSPHORUS 3.7 mg/dL (2.5-4.9); POTASSIUM 4.2 mmol/L (3.5-5.1)
[2019-10-25 08:00] VITALS: BP 123/94
[2019-10-25] MEDS: LEVOTHYROXINE SODIUM 100 MCG TABLET PO SCH (08:30)
[2019-10-25] MEDS: AMLODIPINE BESYLATE 10 MG TABLET PO SCH (09:21)
[2019-10-25] MEDS: DIVALPROEX SODIUM 500 MG TABLET.DR PO SCH ×2 (09:22→16:40)
[2019-10-25] MEDS: CARVEDILOL 6.25 MG TABLET PO SCH ×2 (09:22→21:30)
[2019-10-25] MEDS: PANTOPRAZOLE 40 MG TABLET.DR PO SCH (09:22)
[2019-10-25] MEDS: FENOFIBRATE NANOCRYS (145 MG) 145 MG TABLET PO SCH (09:22)
[2019-10-25] MEDS: chlorproMAZINE HCL 25 MG TABLET PO SCH ×2 (09:41→16:40)
[2019-10-25] MEDS: IV NS 0.9% 1,000 ML IV PRN ×2 (10:28→21:33)
[2019-10-25 16:00] VITALS: BP 129/92
[2019-10-25] MEDS: TAMSULOSIN 0.4 MG CAP.SR.24H PO SCH (18:09)
--- NOTE | 2019-10-25 19:00 | NUR ---
MS RN CLOSING NOTES PT IN BED AWAKE AT THIS TIME. PT REMAINED STABLE THROUGHOUT SHIFT. PT KEPT CLEAN AND DRY, ALL CARE, NEEDS, TREATMENT AND MEDICATIONS ADMINISTERED ANTICIPATED PER ORDER. BED IN LOWEST LOCKED POSITION, HOB ELEVATED TO SEMI FOWLERS POSITION, CALL LIGHTS WITHIN REACH, BED ALARM ON. WILL ENDORSE TO RIPSAW MATCHER NURSE FOR AGNES.
--- NOTE | 2019-10-25 19:40 | NUR ---
ms aldo initial nptes seen pt in bed after got report from am nurse. pt awake and alert speak farsi , monegasque and some Bhutanese. Denies any pain or any discomfort. pt still with IVF infusing. pt seems confused. he stated he wants to go home husam. i told him it depends on md decision. then noticed liked talking to himself. re-oriented where he at . kept him warm and comfortable at all times. will continue to monitor.
[2019-10-25 20:00] VITALS: BP 145/97
[2019-10-25] MEDS: ATORVASTATIN 40 MG TABLET PO SCH (21:31)
[2019-10-25] MEDS: QUETIAPINE FUMARATE 100 MG TABLET PO SCH (21:31)
[2019-10-25] MEDS: LOSARTAN POTASSIUM 50 MG TABLET PO SCH (21:31)
[2019-10-25] MEDS: Z GUARD REMEDY 2 OZ OINT TP PRN (21:44)
[2019-10-25] MEDS: LATANOPROST EYE DROP 0.005% 2.5 ML BOTTLE EACHEYE SCH (22:00)
--- NOTE | 2019-10-26 | NUR ---
ms certified hyperbaric technician notes pt sleeping at this time breathing even and non-labored. IVF still infusing. kept him warm and comfortable at all times. will continue monitoring.
--- NOTE | 2019-10-26 06:56 | NUR ---
ms cnc field service engineer closing notes pt awake watching TV at this time after morning care done. Stable throughout the night . all due meds given and all needs met. No signs of any distress noted. IVf still infusing. Chocolate pudding served per pt requested. reposition him on semi fowlers position with side rails X 2 up and bed alarm set for safety. will endorse to am nurse for continuity of care. place call light at reach.
--- NOTE | 2019-10-26 07:23 | NUR ---
MS RN OPENING NOTES RECEIVED PATIENT AWAKE IN BED IN NO ACUTE SIGNS OF DISTRESS. A/O X2, ABLE TO COOPERATE WITH CARE AND FOLLOW SIMPLE INSTRUCTIONS, NO C/O PAIN OR DISCOMFORTS VOICED AT THIS TIME. ON ROOM AIR AT THIS TIME, TOLERATING WELL, RESPIRATIONS EVEN AND UNLABORED, IV ACCESS TO RIGHT WRIST G#20, INTACT AND PATENT, IVF RUNNING ORDERED, NO S/S OF INFILTRATIONS NOTED. BED IN LOWEST LOCKED POSITION, HOB ELEVATED, CALL LIGHTS WITHIN REACH, BED ALARM ON. WILL CONTINUE TO MONITOR AND CONTINUE PLAN OF CARE
[2019-10-26] MEDS: LEVOTHYROXINE SODIUM 100 MCG TABLET PO SCH (07:28)
[2019-10-26 07:30] VITALS: BP 154/77
[2019-10-26] MEDS: DIVALPROEX SODIUM 500 MG TABLET.DR PO SCH (08:58)
[2019-10-26] MEDS: chlorproMAZINE HCL 25 MG TABLET PO SCH (08:58)
[2019-10-26] MEDS: AMLODIPINE BESYLATE 10 MG TABLET PO SCH (08:58)
[2019-10-26] MEDS: PANTOPRAZOLE 40 MG TABLET.DR PO SCH (08:59)
[2019-10-26] MEDS: FENOFIBRATE NANOCRYS (145 MG) 145 MG TABLET PO SCH (08:59)
[2019-10-26] MEDS: CARVEDILOL 6.25 MG TABLET PO SCH (08:59)
[2019-10-26 10:00] VITALS: BP 154/77
[2019-10-26 11:08] LABS: BASOPHILS % (AUTO) 0.4 % (0.0-2.0); EOSINOPHILS % (AUTO) 2.1 % (0.0-6.0); HEMATOCRIT 39 % (39-51); HEMOGLOBIN 12.5 g/dL (13.5-17.5); LYMPHOCYTES # (AUTO) 2.1 /CMM (0.8-4.8); LYMPHOCYTES % (AUTO) 29.8 % (20.0-44.0); MEAN CORPUSCULAR HGB CONC 32 g/dl (31.0-36.0); MEAN CORPUSCULAR VOLUME 96 fL (80-96); MONOCYTES # (AUTO) 0.6 /CMM (0.1-1.30); MONOCYTES % (AUTO) 8.8 % (2.0-12.0); NEUTROPHILS # (AUTO) 4.1 /CMM (1.8-8.9); NEUTROPHILS % (AUTO) 58.9 % (43.0-81.0); PLATELET COUNT (AUTO) 169 /CMM (150-450); RED BLOOD CELL COUNT(AUTO) 4.06 MIL/uL (4.5-6.0)
[2019-10-26 11:47] LABS: CALCIUM, SERUM 8.6 mg/dL (8.5-10.1); CREATININE 1.5 mg/dL (0.6-1.3); POTASSIUM 4.4 mmol/L (3.5-5.1)
[2019-10-26 16:00] VITALS: BP 116/73
--- NOTE | 2019-10-26 16:27 | NUR ---
RN DISCHARGED NOTES PT DISCHARGED HOME IN STABLE CONDITION. A/O X2-3. VERBALLY RESPONSIVE. V/S TAKEN AND STABLE. ALL BELONGINGS CHECKED, COUNTED AND SIGNED FORM. IV ACCESS ON REMOVED WITH NO BLEEDING NOTED, DRY DRESSING APPLIED TO SITE. NAME ARMBAND REMOVED. PT LEFT UNIT VIA WHEELCHAIR @ 1620 ACCOMPANIED BY ME TO LOBBY TO AWAITING PT'S PRIVATE CAREGIVER EVIN LONG WHO WILL TAKE PT HOME. HEALTH TEACHINGS GIVEN TO PT AND PRIVATE CAREGIVER EVIN LONG, BOTH VERBALIZED UNDERSTANDING. MD AND CHARGE NURSE AWARE OF DISCHARGE.
== END 2019-10-26 16:30 | disposition home or self-care (01) | DRG 201 ==
LOC: ER 13:32 → TELE 18:46 → MED 10-24 12:55
PROVIDERS: ADMIT Family Medicine; ATTEND Family Medicine
DX: R00.0 Tachycardia, unspecified (principal); N17.0 Acute kidney failure with tubular necrosis; E11.22 Type 2 diabetes mellitus with diabetic chronic kidney disease; I12.9 Hypertensive chronic kidney disease with stage 1 through stage 4 chronic kidney disease, or unspecified chronic kidney disease; N18.9 Chronic kidney disease, unspecified; N39.0 Urinary tract infection, site not specified; E03.9 Hypothyroidism, unspecified; F20.9 Schizophrenia, unspecified; F32.9 Major depressive disorder, single episode, unspecified; E78.5 Hyperlipidemia, unspecified; F41.9 Anxiety disorder, unspecified; F84.0 Autistic disorder; G89.29 Other chronic pain; M10.9 Gout, unspecified; N40.0 Benign prostatic hyperplasia without lower urinary tract symptoms; J45.909 Unspecified asthma, uncomplicated; H40.9 Unspecified glaucoma; D64.9 Anemia, unspecified; Z79.84 Long term (current) use of oral hypoglycemic drugs; Z87.440 Personal history of urinary (tract) infections
CPT/HCPCS: 36415; 71045-TC; 78582; 80048-TC; 80053-TC; 80061-TC; 80076-TC; 80164-TC; 80305; 81000-TC; 83735-TC; 84100-TC; 84439-TC; 84443-TC; 84484-TC; 85025-TC; 93307-TC; A9502; A9540; A9567; G0378; G0480; J2785; J7030; J7050; Q0161

== ENCOUNTER 2020-09-08 14:42 | Emergency (ER) | payer OTHER ==
[~2020-09-08] VITALS: Ht 170.2 cm; Wt 95.3 kg
[~2020-09-08 14:42] MED LIST: ALLO100T PO; AMLO10TA4 PO; ATOR80TA PO; CARV6.252 PO; CHLO100T24 PO; DIVA500T54 PO; FENO145T PO; FURO80TA85 PO; LATA2.5D15 OP; LEVO100T9 PO; LOSA100T31 PO; METF-441 PO; OMEP20TA5 PO; POTA-10 PO; QUET300T5 PO; TAMS-12 PO
--- NOTE | 2020-09-08 14:55 | NUR ---
c/o dysuria x 2 days. caregiver concern about uti. Patient a/ox1, breathing even and unlabored, no sob noted, needs attended. Kept comfortable.
[2020-09-08] MEDS ORDERED: IV NS 0.9% 1,000 ML BAG IV ONE (15:00)
[2020-09-08 15:20] LABS: BASOPHILS % (AUTO) 0.4 % (0.0-2.0); EOSINOPHILS % (AUTO) 11.8 % (0.0-6.0); HEMATOCRIT 38 % (39-51); HEMOGLOBIN 12.8 g/dL (13.5-17.5); LYMPHOCYTES # (AUTO) 2.4 /CMM (0.8-4.8); LYMPHOCYTES % (AUTO) 27.7 % (20.0-44.0); MEAN CORPUSCULAR HGB CONC 34 g/dl (31.0-36.0); MEAN CORPUSCULAR VOLUME 95 fL (80-96); MONOCYTES # (AUTO) 0.6 /CMM (0.1-1.30); MONOCYTES % (AUTO) 7.1 % (2.0-12.0); NEUTROPHILS # (AUTO) 4.7 /CMM (1.8-8.9); PLATELET COUNT (AUTO) 275 /CMM (150-450); RED BLOOD CELL COUNT(AUTO) 4.04 MIL/uL (4.5-6.0); WHITE BLOOD COUNT (AUTO) 8.8 K/uL (4.3-11.0)
[2020-09-08 15:27] LABS: BILIRUBIN,URINE Negative (NEGATIVE); COLOR,URINE YELLOW (YELLOW); LEUKOCYTE ESTERASE ,URINE Negative (NEGATIVE); NITRITE, URINE Negative (NEGATIVE); PH,URINE 6.5 (5.0-8.0); PROTEIN,URINE Negative (NEGATIVE); UGLUCOSE Negative (NEGATIVE); UROBILINOGEN,URINE 0.2 EU/dL (0.2)
[2020-09-08 15:35] LABS: CALCIUM, SERUM 9.9 mg/dL (8.5-10.1); CREATININE 1.7 mg/dL (0.6-1.3); POTASSIUM 4.2 mmol/L (3.5-5.1)
[2020-09-08 15:37] LABS: WBC,URINE 0-2 /HPF (0-3)
[2020-09-08 15:38] LABS: BACTERIA,URINE None seen /HPF (None Seen); SQUAMOUS EPITHELIAL CELL,UR Few /HPF (None Seen)
[2020-09-08 15:40] LABS: ALBUMIN 4.3 g/dL (3.4-5.0); BILIRUBIN,DIRECT 0.1 mg/dL (0.0-0.2); BILIRUBIN,TOTAL 0.4 mg/dL (0.2-1.0); TOTAL PROTEIN, SERUM 8.5 g/dL (6.4-8.2)
[2020-09-08] MEDS ORDERED: LORAZEPAM 0.5 MG TABLET ONE (16:10)
[2020-09-08] MEDS ORDERED: LORAZEPAM 0.5 MG TABLET PO ONE (16:30)
[2020-09-08 16:53] VITALS: BP 148/106
--- NOTE | 2020-09-08 16:53 | NUR ---
PATIENT A/OX1, BREATHING EVEN AND UNLABORED, SALESPERSON MEN'S AND BOYS' CLOTHING AT BEDSIDE. NO DISTRESS NOTED. IV removed. Catheter intact and site benign. Pressure and 4x4 applied to site. No bleeding noted.Patient discharged to home in stable condition. Written and verbal after care instructions given. Patient verbalizes understanding of instruction.
== END 2020-09-08 16:53 | disposition home or self-care (01) ==
LOC: ER 14:45
DX: E86.0 Dehydration (principal); R19.7 Diarrhea, unspecified; R30.0 Dysuria; F41.9 Anxiety disorder, unspecified; I12.9 Hypertensive chronic kidney disease with stage 1 through stage 4 chronic kidney disease, or unspecified chronic kidney disease; E11.22 Type 2 diabetes mellitus with diabetic chronic kidney disease; N18.9 Chronic kidney disease, unspecified; D63.1 Anemia in chronic kidney disease; G89.29 Other chronic pain; F32.9 Major depressive disorder, single episode, unspecified; E03.9 Hypothyroidism, unspecified; M10.9 Gout, unspecified; Z79.899 Other long term (current) drug therapy; Z79.84 Long term (current) use of oral hypoglycemic drugs
CPT/HCPCS: 36415; 80048; 80076; 80164; 81001; 82962; 83690; 85025; 93005; 96360; 99284; J7030